=== PATIENT | female | born 1980 | race African-American/Black ===

== ENCOUNTER 2024-12-22 10:00 | Inpatient (IN) | payer OTHER ==
[2025-05-07 14:22] VITALS: BMI 35.9
[2025-05-11] MEDS ORDERED: morphine SULFATE/PF 1 MG/2 ML (2cc Syringe - QUVA) ONE (09:21)
[2025-05-11] MEDS ORDERED: MIDAZOLAM HCL 2 MG/2 ML SINGLE DOSE VIAL ONE ×2 (09:21→10:18)
[2025-05-11] MEDS ORDERED: ePHEDrine SULFATE 50 MG/1 ML AMPULE ONE (09:56)
[2025-05-11] MEDS ORDERED: LIDOCAINE HCL 2% 100 MG/5 ML DISP.SYRIN ONE (09:56)
[2025-05-11] MEDS ORDERED: PROPOFOL 20 ML ONE (09:57)
[2025-05-11] MEDS ORDERED: ROCURONIUM BROMIDE 50 MG/5 ML SYRINGE ONE ×2 (09:57→11:00)
[2025-05-11] MEDS ORDERED: SUGAMMADEX SODIUM 200 MG/2 ML VIAL ONE (10:57)
[2025-05-11] MEDS ORDERED: PROMETHAZINE HCL 25 MG/1 ML VIAL IVPB PRN (11:09)
[2025-05-11] MEDS ORDERED: KETOROLAC TROMETHAMINE 30 MG/1 ML VIAL ONE (11:48)
[2025-05-11] MEDS ORDERED: ACETAMINOPHEN INJECTION 100 ML ONE (12:57)
[2025-05-11] MEDS: ACETAMINOPHEN 1000 MG/100 ML BAG IVPB ONE (13:20)
[2025-05-11] MEDS: LACTATED RINGERS SOLUTION 1,000 ML IV SCH (13:59)
[2025-05-11] MEDS ORDERED: ONDANSETRON 4 MG/2 ML VIAL ONE (14:12)
[2025-05-11] MEDS: ONDANSETRON 4 MG/2 ML VIAL IVPUSH PRN (14:15)
[2025-05-11] MEDS: ONDANSETRON 4 MG/2 ML VIAL IVPUSH ONE (16:51)
[2025-05-11] MEDS: IBUPROFEN 800 MG/8 ML IJ IVPB PRN (18:13)
[2025-05-11] MEDS: ACETAMINOPHEN 1000 MG/100 ML BAG IVPB PRN (21:29)
[2025-05-12 06:48] LABS: MCHC 28.9 g/dl (32.2-35.5); MEAN CELL VOLUME 69.7 fl (79.4-94.8); MEAN PLT VOLUME 10.6 fl (9.4-12.3); RDW 17.4 % (12.2-17.1)
[2025-05-12 07:58] LABS: CREATININE 0.7 mg/dL (0.55-1.3)
[2025-05-12] MEDS ORDERED: ACETAMINOPHEN 325 MG TABLET (FP) PO PRN (08:43)
[2025-05-12] MEDS: ENOXAPARIN NA (PORCINE) 40 MG/0.4 ML DISP.SYRIN SQ SCH (09:58)
[2025-05-12] MEDS: IBUPROFEN 600 MG TABLET (FP) PO SCH (11:56)
[2025-05-12] MEDS: IRON SUCROSE INJECTION 200 MG in SODIUM CHLORIDE 100 ML IVPB ONE (13:30)
[2025-05-13 06:02] VITALS: TEMP 98.1
[2025-05-13] MEDS: ACETAMINOPHEN 500 MG TABLET (FP) PO PRN (11:03)
[2025-05-13 11:29] VITALS: BP 120/75; PULSE 68; RESP 17
== END 2025-05-13 15:10 | disposition home or self-care (01) | DRG 743 ==
LOC: J2C 05-11 06:30 → J3W 05-11 14:51
PROVIDERS: ADMIT Obstetrics & Gynecology; ATTEND Obstetrics & Gynecology
PROC: 0UT70ZZ Resection of Bilateral Fallopian Tubes, Open Approach (ICD-10-PCS; 2025-05-11)
PROC: 0UT90ZZ Resection of Uterus, Open Approach (ICD-10-PCS; principal; 2025-05-11 09:00)
DX: D25.9 Leiomyoma of uterus, unspecified (principal); N92.0 Excessive and frequent menstruation with regular cycle
CPT/HCPCS: 36415; 81025; 82565; 85027; 86850; 86900; 86901; 88307-TC; 88342-TC; 94760; J1756